=== PATIENT | female | born 1950 | race Asian ===

== ENCOUNTER 2023-03-16 09:46 | Emergency (ER) | payer MEDICARE, MEDICAID ==
[~2023-03-16] VITALS: Ht 149.9 cm; Wt 67.7 kg
[2023-03-16 10:26] VITALS: TEMP 98.1
[2023-03-16 10:48] LABS: BASOPHILS % (AUTO) 0.5 % (0.0-2.0); EOSINOPHILS % (AUTO) 0.3 % (1.0-6.0); HEMATOCRIT 51.4 % (36-46); HEMOGLOBIN 16.8 g/dL (12.0-16.0); LYMPHOCYTES # (AUTO) 2.5 K/uL (1.0-4.8); LYMPHOCYTES % (AUTO) 16.8 % (22.0-44.0); MEAN CORPUSCULAR HEMOGLOBIN 28.8 pg (26.0-34.0); MEAN CORPUSCULAR HGB CONC 32.6 G/dL (31.0-37.0); MEAN CORPUSCULAR VOLUME 88 fL (80-100); MONOCYTES # (AUTO) 0.9 K/uL (0.1-1.0); MONOCYTES % (AUTO) 6.2 % (2.0-9.0); NEUTROPHILS # (AUTO) 11.5 K/uL (1.8-7.7); NEUTROPHILS % (AUTO) 76.2 % (40.0-70.0); PLATELET COUNT (AUTO) 220 K/uL (150-450); RED BLOOD CELL COUNT(AUTO) 5.82 MIL/uL (4.00-5.20); RED CELL DISTRIBUTION WIDTH 15.2 % (11.5-14.5); WHITE BLOOD COUNT (AUTO) 15.1 K/uL (4.5-11.0)
[2023-03-16 11:09] LABS: ALANINE AMINOTRANSFERASE 37 U/L (12-78); ASPARTATE AMINOTRANSFERASE 33 U/L (15-37); BILIRUBIN,TOTAL 0.6 mg/dL (0.1-1.0); CALCIUM, TOTAL 9.2 mg/dL (8.8-10.5); CARBON DIOXIDE 21 mmol/L (22-29); GLUCOSE,RANDOM 128 mg/dL (70-110); TOTAL PROTEIN, SERUM 8.1 g/dL (6.4-8.2); UREA NITROGEN, BLOOD 15 mg/dL (7-18)
[2023-03-16 11:11] LABS: TROPONIN I-HIGH SENSITIVITY 14 ng/L (<51)
[2023-03-16 11:25] LABS: ALBUMIN 3.5 g/dL (3.4-5.0); ALKALINE PHOSPHATASE 141 U/L (46-116); ANION GAP 14 mmol/L (8-16); CHLORIDE 105 mmol/L (98-107); CREATININE 0.85 mg/dL (0.60-1.30); GLOMERULAR FILTR. RATE CALC > 60 mL/min (>60); POTASSIUM 3.8 mmol/L (3.5-5.1); SODIUM SERUM 140 mmol/L (136-145)
[2023-03-16] MEDS ORDERED: AmLODIPine BESYLATE 5 MG TABLET PO ONE (11:30)
[2023-03-16 12:52] LABS: PROTHROMBIN TIME 10.3 SEC (9.4-11.6)
[2023-03-16 13:04] LABS: TROPONIN I-HIGH SENSITIVITY 14 ng/L (<51)
[2023-03-16] MEDS ORDERED: LIDOCAINE 1% 10 ML VIAL SQ ONE (13:45)
[2023-03-16] MEDS ORDERED: TRAM-559 PO (14:34)
[2023-03-16] MEDS ORDERED: PERTUSS(ACELL),DIPH,TET VAC/PF 0.5 ML SYRINGE IM. ONE (14:45)
[2023-03-16 15:46] VITALS: BP 196/103; PULSE 100; RESP 18
== END 2023-03-16 15:53 | disposition home or self-care (01) ==
LOC: EMS 10:07
DX: S81.812A Laceration without foreign body, left lower leg, initial encounter (principal); S09.90XA Unspecified injury of head, initial encounter; E78.00 Pure hypercholesterolemia, unspecified; I10 Essential (primary) hypertension; W01.0XXA Fall on same level from slipping, tripping and stumbling without subsequent striking against object, initial encounter; Y93.89 Activity, other specified; Y92.89 Other specified places as the place of occurrence of the external cause; Y99.8 Other external cause status
CPT/HCPCS: 99285; 70450; 71045; 80053; 83880; 84484; 85025; 85610; 85730; 36415; 73030; 73590; 72125; 90715; 93005; 90471; 12002; J3490